=== PATIENT | female | born 1945 | race Caucasian/White ===

== ENCOUNTER 2020-02-28 19:55 | Emergency (ER) | payer MEDICARE, SELFPAY ==
--- NOTE | 2020-02-28 19:57 | ED.EAR ---
HPI - Ear Problem General Chief complaint: Ear Stated complaint: ear pain Time Seen by Provider: 02/28/20 19:57 Source: patient and RN notes reviewed History of Present Illness HPI Narrative: Patient is a 74-year-old female who presents the urgent care with complaints of crackling in the left ear . Patient states that started late this afternoon and she asked the pharmacist what she could use and they told her to have it checked out . Patient denies of any pain to the ear. Denies any upper respiratory symptoms associated with the left ear crackling. Patient denies putting anything in the ear. No other acute complaints. No acute distress noted. Patient aware of the plan of care. Some parts of this dictation were generated by voice recognition software and may contain typographical and/or grammatical inaccuracies. Related Data Home Medications Medication Instructions Recorded Confirmed amlodipine 10 mg PO DAILY 02/28/20 02/28/20 fenofibrate 54 mg PO DAILY 02/28/20 02/28/20 metoprolol succinate 25 mg PO DAILY 02/28/20 02/28/20 pantoprazole 40 mg PO HS 02/28/20 02/28/20 rosuvastatin 20 mg PO DAILY 02/28/20 02/28/20 Allergies Allergy/AdvReac Type Severity Reaction Status Date / Time No Known Allergies Allergy Verified 02/28/20 19:59 Review of Systems Review of Systems: Narrative: CONSTITUTIONAL: Denies fever, chills, or sweats. EYES: Denies visual changes, redness, or discharge. ENT: Reports of left ear crackling CARDIOVASCULAR: Denies chest pain, palpitations, or edema. RESPIRATORY: Denies cough or dyspnea. GASTROINTESTINAL: Denies abdominal pain, nausea, vomiting, or diarrhea. GENITOURINARY: Denies dysuria or hematuria. SKIN: Denies rash or itching. MUSCULOSKELETAL: Denies back pain, joint pain, or myalgia. NEUROLOGIC: Denies headache, numbness, or weakness. All other systems reviewed are negative, except as documented in HPI. PMFSH Comments At the time of my signature, I reviewed and agree with the nursing past medical, surgical, social, and family history. There is no relevant family history pertinent to the patient complaint. Exam Narrative: Exam Narrative: GENERAL: This is a well-nourished, well-developed patient, in no apparent distress. HEAD: normocephalic, atraumatic. EYES: PERRL. Sclera clear/white. Vision is grossly intact. EARS: External ears normal, auditory canals clear and without drainage, notable cerumen to the right ear canal without otitis or impaction, mild fluid noted behind the left TM without otitis, TMs normal without perforation. Hearing grossly intact. NOSE: External nose normal with no obvious nasal discharge, nares without redness, no rhinorrhea. THROAT: Mucous membranes moist NECK: Neck supple SKIN: warm, intact with no suspicious lesions or rash, good texture and turgor. NEURO: awake, alert, and oriented to person, place and time. There were no obvious focal neurologic abnormalities. EXTREMITIES: No clubbing, cyanosis, or edema. Course Vital Signs Vital signs: Vital Signs Temperature 98.4 F 02/28/20 20:00 Pulse Rate 80 02/28/20 20:00 Respiratory Rate 14 02/28/20 20:00 Blood Pressure 136/70 02/28/20 20:00 Pulse Oximetry 98 02/28/20 20:00 Temperature 98.4 F 02/28/20 20:00 Pulse Rate 80 02/28/20 20:00 Respiratory Rate 14 02/28/20 20:00 Blood Pressure 136/70 02/28/20 20:00 Pulse Oximetry 98 02/28/20 20:00 Reviewed Medical Decision Making MDM Narrative Medical decision making narrative: Educated the patient that the crackling noise is likely due to the mild fluid noted behind the membrane in the left ear. Use an antihistamine such as Claritin or Zyrtec in conjunction with Flonase nasal spray to dry the fluid. May use a warm compress to the ear for comfort. Do not put anything in the ear such as Q-tips, peroxide, [id number] drops or water. If you develop any increase in symptoms associated with ringing in the ear, pain, fever?follow-up w
[2020-02-28 20:00] VITALS: BP 136/70; PULSE 80; RESP 14; TEMP 36.9; O2SAT 98
== END 2020-02-28 20:06 | disposition home or self-care (01) ==
PROVIDERS: Emergency Provider Nurse Practitioner Family; PCP Family Medicine
DX: H92.02 Otalgia, left ear (principal); E78.00 Pure hypercholesterolemia, unspecified; I10 Essential (primary) hypertension; K21.9 Gastro-esophageal reflux disease without esophagitis
CPT/HCPCS: 99201; G0463